=== PATIENT | male | born 1995 | race African-American/Black ===

== ENCOUNTER 2021-01-29 12:43 | Emergency (ER) | payer OTHER ==
[2021-01-29] MEDS ORDERED: Ketorolac Tromethamine 30 MG/ML VIAL ONE (13:35)
[2021-01-29] MEDS ORDERED: PROPOFOL 20 ML ONE (14:53)
== END 2021-01-29 18:18 ==
LOC: EEVIPCON 12:43 → ERS 12:43
DX: S52.121A Displaced fracture of head of right radius, initial encounter for closed fracture (principal); S53.124A Posterior dislocation of right ulnohumeral joint, initial encounter; J45.909 Unspecified asthma, uncomplicated; F17.200 Nicotine dependence, unspecified, uncomplicated
CPT/HCPCS: 24600; 96372; 99152; J1885; J2704

== ENCOUNTER 2021-02-04 11:08 | Emergency (ER) | payer OTHER, SELFPAY ==
[2021-02-04] MEDS ORDERED: Ketorolac Tromethamine 30 MG/ML VIAL ONE (12:23)
== END 2021-02-04 13:20 | disposition home or self-care (01) ==
LOC: ERS 11:08
DX: S52.121A Displaced fracture of head of right radius, initial encounter for closed fracture (principal); F17.200 Nicotine dependence, unspecified, uncomplicated; X58.XXXA Exposure to other specified factors, initial encounter
CPT/HCPCS: 29105; 96372; J1885